=== PATIENT | male | born 2000 | race Caucasian/White ===

== ENCOUNTER 2019-04-30 21:37 | Inpatient (IN) | payer MEDICAID ==
[~2019-04-30] VITALS: Ht 170.2 cm; Wt 86.2 kg
[2019-04-30 21:41] VITALS: Ht 170.2 cm; Wt 86.2 kg
--- NOTE | 2019-04-30 21:47 | NUR ---
PT SITTING UP ON EDGE OF BED, AAOX4 WITH C/O SOB WITH DIZZINESS AND BUE/BLE TINGLING WITH CRAMPING X 1 HOUR S/P RUNNING AROUND WHILE PLAYING SOCCER. PT DENIES ANY RECENT ILLNESS AT THIS TIME.
[2019-04-30 22:17] LABS: microscopic required? NO
[2019-04-30 22:36] LABS: BASOPHIL % 0 % (0-2); PLATELET COUNT 260 x10^3mcL (130-400); RED CELL DISTRIBUTION WIDTH 12.6 % (11.5-14.5)
[2019-04-30 22:43] LABS: CALCIUM 9.8 mg/dL (8.5-10.1); CARBON DIOXIDE 21.4 mmol/L (21-32); CHLORIDE SERUM 104 mmol/L (98-107); CREATININE SERUM 1.2 mg/dL (0.7-1.3); GFR1 > 60 mL/min; GLUCOSE SERUM 107 mg/dL (74-106); POTASSIUM SERUM 3.2 mmol/L (3.5-5.1); SODIUM SERUM 143 mmol/L (136-145)
[2019-04-30 22:52] LABS: UA SPECIFIC GRAVITY 1.015 (1.005-1.035); urine erythrocyte NEGATIVE (NEGATIVE)
[2019-04-30 22:56] LABS: ALKALINE PHOSPHATASE 100 U/L (46-116); ALT/SGPT 31 U/L (16-63); AST/SGOT 13 U/L (15-37); BILIRUBIN TOTAL 0.59 mg/dL (0.20-1.00); FREE T4 1.06 ng/dL (0.76-1.46); TOTAL PROTEIN, SERUM 8.7 g/dL (6.4-8.2)
[2019-04-30 23:00] LABS: AMPHETAMINE QUAL UR NONE DETECTED (See below)
--- NOTE | 2019-04-30 23:08 | NUR ---
PT RESTING IN BED WITH PARENTS AT BEDSIDE WITH NO SIGNS OF DISTRESS AT THIS TIME.
--- NOTE | 2019-05-01 01:16 | NUR ---
REPORT GIVEN TO RADHA THOMAS.
--- NOTE | 2019-05-01 01:40 | NUR ---
ADMITTED WITH CC OF SOB, CRAMPING, AND BUE AND BLE TINGLING. AOX4. SR ON TELE 20. LUNGS CLEAR ON RA. DENIES SOB AT THIS TIME. PULSES PALPABLE. NO EDEMA. BOWEL SOUNDS ACTIVE. VOIDS FREELY. AMBULATORY. SKIN INTACT. IV TO LAC, PATENT AND INFUSING. DENIES PAIN. DENIES CRAMPING AND EXTREMITY TINGLING AT THIS TIME. ORIENTED TO ROOM. BED IN LOWEST POSITION, 2 SIDE RAILS UP, CALL LIGHT IN REACH. INSTRUCTED TO CALL FOR ASSISTANCE.
[2019-05-01 01:57] VITALS: BP 126/80
[2019-05-01 02:13] LABS: CHOLESTEROL/HDL RATIO 3.8
[2019-05-01 02:31] LABS: PHOSPHOROUS 0.8 mg/dL (2.5-4.9)
[2019-05-01 05:10] VITALS: BP 117/63
[2019-05-01 06:25] LABS: BASOPHIL % 0.2 % (0-2); PLATELET COUNT 233 x10^3mcL (130-400); RED CELL DISTRIBUTION WIDTH 12.7 % (11.5-14.5)
--- NOTE | 2019-05-01 06:44 | NUR ---
NO C/O SOB/DIZZINESS/CRAMPING/BUE&BLE TINGLING THROUGOUT SHIFT. NO ACUTE DISTRESS NOTED. WILL ENDORSE TO ONCOMING RN.
[2019-05-01 07:12] LABS: CALCIUM 9.1 mg/dL (8.5-10.1); CARBON DIOXIDE 23.5 mmol/L (21-32); CHLORIDE SERUM 109 mmol/L (98-107); CREATININE SERUM 0.9 mg/dL (0.7-1.3); GFR1 > 60 mL/min; GLUCOSE SERUM 85 mg/dL (74-106); PHOSPHOROUS 4.8 mg/dL (2.5-4.9); SODIUM SERUM 146 mmol/L (136-145)
--- NOTE | 2019-05-01 07:15 | NUR ---
SEEN IN BED AAOX4. NO RESP DISTRESS NOTED. BREATHING E/U ON ROOM AIR. DENIES DIZZINESS, TINGLING TO EXTREAMITIES. DENIES PAIN. ON REGULAR DIET, TOLERATED WELL. BRP. IVF NS INFUSING WELL AT 100ML/HR. CALL LIGHT PLACED WITHIN EASY REACH. SIDERAILS UP X2.
--- NOTE | 2019-05-01 08:33 | NUR ---
DOCTOR YOSSI MADE AWARE.
[2019-05-01 09:02] VITALS: BP 128/73
--- NOTE | 2019-05-01 09:05 | NUR ---
DOCTOR FERRO AND MEDICAL TEAM AT BEDSIDE FOR AM ROUND. PATIENT MADE AWARE OF CURRENT CONDITION AND PLAN OF CARE.
[2019-05-01 13:01] VITALS: BP 126/77
--- NOTE | 2019-05-01 15:08 | NUR ---
DISCHARGE INSTRUCTIION GIVEN TO PATIENT WHO IS AWAKE, ALERT, ORIENTED X4. DENIES PAIN OR DISCOMFORT AT THIS TIME. S/L TO LAC REMOVED WITH CATHETER INTACT, NO ERYTHEMA OR INFILTRATION TO SITE, DRSG APPLIED. TELEMETRY REMOVED, CLEANED AND RETURNED TO HI. PERSONAL BELONGING CHECKED AND KEPT WITH PATIENT. AWAITING FOR HIS FAMILY FOR SOFTWARE QUALITY SPECIALIST.
--- NOTE | 2019-05-01 15:24 | NUR ---
REFUSED WHEELCHAIR. ACCOMPANIED BY FAMILY MEMBERS AND SYSTEMS TEST ENGINEER NIRALI TO LOBBY. CONDITION STABLE UPON DISCHARGE.
== END 2019-05-01 15:22 | disposition home or self-care (01) | DRG 422 ==
LOC: ED 21:37 → MU 05-01 00:02 → DU 05-01 00:02 → MU 05-01 01:33 → DU 05-01 01:41
PROVIDERS: Emergency Medicine; ADMIT General Practice
DX: E86.0 Dehydration (principal); N17.0 Acute kidney failure with tubular necrosis; E87.6 Hypokalemia; F12.10 Cannabis abuse, uncomplicated; D72.829 Elevated white blood cell count, unspecified; F43.9 Reaction to severe stress, unspecified
CPT/HCPCS: 83880; 84439; 85378; G0378; G0480; J7030